=== PATIENT | female | born 1970 | race Caucasian/White ===

== ENCOUNTER → 2018-11-03 11:06 | Outpatient (CLI) | payer OTHER, SELFPAY ==
--- NOTE | 2018-11-03 11:30 | BRBX_PTH ---
PATIENT: SERGIO RG LOC: [facility] U#:[id number] AGE/SX: 55/F ROOM: RE11/03/[address]: Dr. Kortney Evans MD : 1970 BED: DIS: SPEC #: [id number] RECD: 11/03/18 12:00 STATUS: [place] REMargie #: [id number] GABY: 11/03/18 11:[address]: Kortney Evans DEPT: SURGICAL PATHOLOGY RECD BY: Johan Willis ENTERED: 11/03/18 13:04 SP TYPE: BREAST BX OTHR DR: Dr. Kin Duarte DO Tissues: Right breast, NOS Procedures: Surgery Specimen Level IV HEADER OPERATION: Right breast stereotactic biopsy PRE-OP DIAGNOSIS: Right breast calcifications inferior lateral middle depth TISSUE SUBMITTED: Right breast core tissue FIXATION TIME: 8 hours MICROSCOPIC DIAGNOSIS Right breast stereotactic core biopsy: Fibrocystic change. Banal microcalcifications. No evidence of malignancy. AM:estelita 11/04/18 MICROSCOPIC DESCRIPTION Slides are reviewed. GROSS DESCRIPTION Received is one container labeled with the patient's name and not further designated. The specimen consists of multiple elongated fragments of martinez-yellow fibroadipose tissue that in aggregate measure 5 x 2.5 x 0.3 cm. The entire specimen is submitted in two cassettes. / SJ:estelita 11/03/18 TC:5 CPT: 89573
--- NOTE | 2018-11-04 09:47 | PCM.OPRPT ---
Report of Operation Date of Procedure: 11/03/18 Pre-Operative Diagnosis: abnormal calcifications of right breast mammograms Post-Operative Diagnosis: same Surgery/Procedure Performed:: right stereotactic breast biopsy Description of Surgical Findings:: abnormal calcifications seen on right breast mammograms - lateral aspect of right breast Type of Anesthesia:: Local Specimen's removed: right breast tissue Estimated Blood Loss (mL): minimal Fluids Replaced: none Description of Procedure: After informed consent was given, the patient was brought into the breast biopsy suite. Appropriate time out protocol was followed. She was then placed in the prone position on the stereotactic biopsy table. The patient?s right breast was then placed in the opening at the head of the table. A fashion editor compression mammogram was then obtained in the lateral view. The suspicious radiological lesion was then identified. Stereo pictures of the lesion were then taken for XYZ coordinates. The area of calcifications appeared to be at the 9:00 - lateral aspect of the breast. The Mammotome biopsy stylus was then positioned where it would be entering into the patient?s breast. The skin at this site was then cleansed with a surgical skin preparation. The skin and subcutaneous tissues at this site were then infiltrated with 1% xylocaine. A small skin incision was made with an 11 blade scalpel. The biopsy stylus was then positioned into the patient?s breast at the proper coordinates of depth. Using the Mammotome vacuum-assist device, several core samples of breast tissue were obtained. A specimen mammogram was the obtained and revealed that the suspicious lesion was within the specimen. A hemostatic marker clip was then placed into the biopsy cavity and a fashion editor film revealed that it was properly deployed. The patient was then placed in the supine position and pressure was applied to the breast until no active bleeding was noted. A suture of 3-0 nylon was placed for better closure of the incision site. A unilateral mammogram in the CC and MLO view were then taken which revealed that the marker clip was in the same area as the previous suspicious lesion. The patient tolerated the procedure well and was discharged from the breast biopsy suite in good condition. - Complications none noted
== END ==
PROVIDERS: Family Provider Student in an Organized Health Care Education/Training Program; PCP Student in an Organized Health Care Education/Training Program; Referring Provider Surgery; Visit Provider Surgery
DX: N60.11 Diffuse cystic mastopathy of right breast (principal); E03.9 Hypothyroidism, unspecified; Z79.899 Other long term (current) drug therapy
CPT/HCPCS: 19081; 88305; J7050